=== PATIENT | female | born 1945 | race Caucasian/White ===

== ENCOUNTER 2018-06-04 06:16 | Day surgery (SDC) | END 2018-06-04 10:27 | disposition home or self-care (01) ==

== ENCOUNTER 2018-10-01 07:37 | Day surgery (SDC) | payer OTHER ==
--- NOTE | 2018-09-30 13:14 | PREOPHP ---
DATE OF ADMISSION: 10/01/2018 HISTORY OF PRESENT ILLNESS: This 73-year-old patient is admitted for elective cataract surgery of th e left eye. The patient has had decreased vision in both eyes for the past 5 years and 4 months ago underwent cataract surgery of the right eye with good visual result. SYSTEMIC HISTORY: Positive for systemic hypertension and for hypercholesterolemia. CURRENT MEDICATIONS: Include: 1. Lisinopril. 2. Atorvastatin. ALLERGIES: THERE ARE NO KNOWN ALLERGIES. PHYSICAL EXAMINATION: The visual acuity with correction is 20/30 in the right eye and 20/40 in the l eft eye. Slit lamp examination reveals a posterior chamber intraocular lens in the right eye as well as evidence of prior excision of nasal pterygium in the right eye. Examination of the left eye reve als dense anterior cortical and moderate nuclear sclerotic cataract. Applanation tonometry is 19 mmH g. Examination of the retina is noted to be within normal limits. DIAGNOSIS: Mixed cortical and nuclear cataract, left eye. PLAN: Cataract extraction with lens implant, left eye. The risks and alternatives to the cataract s urgery have been discussed with the patient as well as the hope for improvement of visual acuity lead ing to greater ability to perform activities of daily living. The patient understands this and agree s to proceed with surgery. Dictated By: YNES MEREDITH/JURGEN Conf#: [id number] DID#: [id number]
[2018-10-01] VITALS (12 sets, daily range): BP systolic 108–129; BP diastolic 63–75; PULSE 72–88; RESP 12–22; Ht 152.4 cm; Wt 64.6 kg
[~2018-10-01] VITALS: Ht 152.4 cm; Wt 64.6 kg
[~2018-10-01 07:37] MED LIST: ATOR20TA38 PO; LISI10TA2 PO
[2018-10-01] MEDS ORDERED: SOD CHLORIDE 0.9% 1,000 ML IV SCH (08:00)
[2018-10-01] MEDS ORDERED: CYCLOPENTOLATE/PHENYLEPH 2 ML OPH OPER SCH (08:00)
[2018-10-01] MEDS ORDERED: DICLOFENAC 0.1% 2.5 ML OPH OPER SCH (08:00)
[2018-10-01] MEDS ORDERED: TROPICAMIDE 1% 15 ML OPH OPER SCH (08:00)
[2018-10-01] MEDS ORDERED: MOXIFLOXACIN 0.5% 3 ML OPH OPER SCH (08:00)
--- NOTE | 2018-10-01 08:50 | PREAC ---
Date/Time of Note Date/Time of Note DATE: 10/01/18 TIME: 08:48 Anesthesia Eval and Record Evaluation Time Pre-Procedure Interview DATE: 10/01/18 TIME: 08:48 Age 73 Sex female NPO: 8 hrs Preoperative diagnosis Left cataract Planned procedure Lt cataract extraction IOL implant Past Medical History Past Medical History: Includes Cardio: HTN, Dyslipidemia Endo: Diabetes Pulm: Other (ex-smoker) Surgery & Anesthesia Issues No known issue Meds Anticoagulation: No Beta Oksana within 24 hr: No Reason Beta Oksana not given: Pt. not on B-Oksana Reported Medications Atorvastatin Calcium* (Atorvastatin Calcium*) 20 Mg Tablet, 20 MG PO QHS, #30 TAB 06/04/18 Lisinopril* (Lisinopril*) 10 Mg Tablet, 10 MG PO DAILY, #30 TAB 06/04/18 Current Medications Diclofenac Sodium (Voltaren 0.1%) 1 drop Q5 MIN X 3 OPER Last administered on 10/01/18at 08:38; Admin Dose 1 DROP; Start 10/01/18 at 08:00 Tropicamide (Mydriacyl 1%) 1 drop Q5 MIN X3 OPER Last administered on 10/01/18at 08:38; Admin Dose 1 DROP; Start 10/01/18 at 08:00 Moxifloxacin HCl (Vigamox) 1 drop Q5 MIN X 3 OPER Last administered on 10/01/18at 08:38; Admin Dose 1 DROP; Start 10/01/18 at 08:00 Cyclopentolate/ Phenylephrine (Cyclomydril Oph 2 ml) 1 drop Q5 MIN X 3 OPER Last administered on 10/01/18at 08:39; Admin Dose 1 DROP; Start 10/01/18 at 08:00 Sodium Chloride 1,000 ml @ 25 mls/hr Q24H IV Last administered on 10/01/18at 08:39; Admin Dose 25 MLS/HR; Start 10/01/18 at 08:00 Labetalol HCl (Labetalol) 5 mg PACU ORDER PRN IV HIGH BLOOD PRESSURE; Start 10/01/18 at 09:00; Status UNV Hydralazine HCl (Apresoline) 5 mg PACU ORDER PRN IV HIGH BLOOD PRESSURE; Start 10/01/18 at 09:00; Status UNV Meds reviewed: Yes Allergies Coded Allergies: No Known Allergies (Verified Allergy, Unknown, 10/01/18) Allergies Reviewed: Yes Labs/Studies Labs Reviewed: Reviewed by anesthesiologist test: N/A Studies: ECG Pre-procedure Exam Airway: Adequate mouth opening, Adequate thyromental dist Mallampati: Mallampati I Teeth: Normal Lung: Normal Heart: Normal ASA Physical Status ASA physical status: 2 Emergency: None Planned Anesthetic General/MAC: MAC Planned Pain Management Local by surgeon Pre-operative Attestations Prior to commencing anesthesia and surgery, the patient was re-evaluated, there was verification of: *The patient's identity *The results of appropriate recent lab work and preoperative vital signs *The above evaluation not changing prior to induction *Anesthetic plan, risk benefits, alternative and complications discussed with patient/family; questions answered; patient/family understands, accepts and wishes to proceed. CHACHA PARKER IT SECURITY PROJECT MANAGER Oct 01, 2018 08:50
[2018-10-01] MEDS ORDERED: hydrALAzine 20 MG INJ IV PRN (09:00)
[2018-10-01] MEDS ORDERED: LABETALOL HCL 20MG INJ IV PRN (09:00)
[2018-10-01] MEDS ORDERED: CEFAZOLIN 1 GM INJ ONE (09:15)
[2018-10-01] MEDS ORDERED: LIDOCAINE 4% (MPF) 5 ML INJ ONE ×2 (09:15→10:00)
[2018-10-01] MEDS ORDERED: CARBACHOL 0.01% 1.5 ML OPH INJ ONE (09:16)
[2018-10-01] MEDS ORDERED: NA HYALURONATE/CHONDROITIN 0.5 ML SYG ONE (09:16)
[2018-10-01] MEDS ORDERED: DEXAMETHASONE 4 MG/ML 1 ML INJ ONE (09:16)
[2018-10-01] MEDS ORDERED: LIDOCAINE 2% (SDV) 5 ML INJ ONE (09:32)
[2018-10-01] MEDS ORDERED: PROPOFOL 20 ML ONE (09:32)
--- NOTE | 2018-10-01 10:12 | SIPON ---
Date/Time of Note Date/Time of Note DATE: 10/01/18 TIME: 10:10 Operative Report Preoperative Diagnosis nuclear sclerotic cataract os Postoperative Diagnosis same Operation/Procedure Performed cataract extraction with lens implant os Surgeon ynes barba fire assistant none Anesthesia: MAC Estimated blood loss: none Transfusion Required none Specimen none Grafts/Implants posterior chamber lens implant Complications none YNES BARBA MD Oct 01, 2018 10:12
--- NOTE | 2018-10-01 10:39 | PAC ---
Date/Time of Note Date/Time of Note DATE: 10/01/18 TIME: 10:39 Post-Anesthesia Notes Post-Anesthesia Note Last documented vital signs 120/74-71-13-97% RA Activity: WNL Respiratory function: WNL Cardiovascular function: WNL Mental status: Baseline Pain reasonably controlled: Yes Hydration appropriate: Yes Nausea/Vomiting absent: Yes CHACHA PARKER CRNA Oct 01, 2018 10:39
--- NOTE | 2018-10-01 12:26 | OPR ---
DATE OF OPERATION: 10/01/2018 PREOPERATIVE DIAGNOSIS: Nuclear sclerotic cataract, left eye. POSTOPERATIVE DIAGNOSIS: Nuclear sclerotic cataract, left eye. OPERATION PERFORMED: Cataract extraction with lens implant, left eye. SURGEON: Ynes Willett MD ANESTHESIOLOGIST: Dany Kerr CRNA ANESTHESIA: Local standby. PROCEDURE: The patient was brought to the operating room and placed on the table with an IV in place and the patient attached to an electronic device monitor. Oxygen was given via face mask. After some intravenous sedation was administered, local anesthesia was given using Xylocaine 2% with epinephrine, mixed with Marcaine 0.5%. This was given in a lid block and retrobulbar injection. The p atient was then prepped and draped in the usual sterile manner. A wire lid speculum was inserted between the lids of the left eye. A Superblade was used to enter the anterior chamber at the corneoscleral limbus at the 10:30 o'clock position. A separate incision was made using a 3.0-mm keratome which entered the corneoscleral junction at the 12 o'clock position. Thr ough this 3-mm opening, an irrigating cystotome was introduced into the anterior chamber. The chamber was filled with Viscoat and an anterior capsulotomy was performed. Balanced salt solution was then u sed for hydrodissection of the lens. A phacoemulsification handpiece was then brought into the field and introduced into the anterior chamber. The lens nucleus was emulsified using a deep groove and cr acking the nucleus into quadrants. Following this, each quadrant was aspirated and emulsified at the pupillary margin. After this was completed, the irrigation/aspiration handpiece was brought to the field, introduced in to the posterior chamber, and the lens cortical material was removed. When this was completed, additi onal Viscoat was injected into the anterior and posterior chambers. The 3-mm opening had its internal lips enlarged, and then the posterior chamber intraocular lens silvia uring 17.5 diopters ([employer] [id number]) was then injected into the posterior chamber using the lens injector system. After the leading haptic was introduced into the capsular bag and th e lens optic was present in the center of the eye, the injector was removed and the trailing haptic w as grasped with non-toothed forceps and introduced into the capsular fold superiorly. A Sinskey hook was then used to rotate the intraocular lens so that the lips were oriented in the horizontal meridia n. One 10-0 nylon suture was placed across the wound. Prior to tying, the irrigation/aspiration handpiece was reintroduced into the anterior chamber to rem ove the Viscoat. Miochol was instilled to constrict the pupil, and then the 10-0 nylon suture was tie d. The ends were cut short and then the knot was buried. Then, 0.5 mL of dexamethasone and 0.5 mL of Ancef were injected into the sub-Tenon space in the infer ior fornix. Ciloxan drops were then placed on the surface of the eye. The speculum was removed and a patch was applied. The patient then left the operating room in satisfactory condition. Dictated By: YNES MEREDITH/JURGEN Conf#: [id number] DID#: [id number]
== END 2018-10-01 12:08 | disposition home or self-care (01) ==
LOC: SDS 07:37
PROVIDERS: ATTEND Ophthalmology
DX: H25.11 Age-related nuclear cataract, right eye (principal); I10 Essential (primary) hypertension; E78.5 Hyperlipidemia, unspecified; E11.9 Type 2 diabetes mellitus without complications; F17.200 Nicotine dependence, unspecified, uncomplicated
CPT/HCPCS: J0690; J1100; V2632